=== PATIENT | male | born 1995 | race Two or more races ===

== ENCOUNTER 2023-06-10 11:31 | Emergency (ER) | payer OTHER, MEDICAID ==
[~2023-06-10] VITALS: Ht 180.3 cm; Wt 97.8 kg
[2023-06-10 11:40] VITALS: TEMP 98.2
[2023-06-10] MEDS ORDERED: SODIUM CHLORIDE 0.9% 1,000 ML IV ONE ×2 (12:15)
[2023-06-10 12:37] LABS: Basophils # (auto) 0 10 ^3/uL (0-0.2); Basophils % (auto) 0.1 % (0.0-2.0); Eosinophils # (auto) 0 10 ^3/uL (0-0.8); Eosinophils % (auto) 0.1 % (0.0-7.0); Hematocrit 46.8 % (41.0-53.0); Hemoglobin 15.9 g/dL (13.5-17.5); Lymphocytes # (auto) 1.6 10 ^3/uL (0.4-5.4); Mean Corpuscular Hemoglobin 28.7 pg (28.0-32.0); Mean Corpuscular Hgb Conc. 33.9 g/dL (32.0-36.0); Mean Corpuscular Volume 84.6 fL (80.0-100.0); Monocytes # (auto) 1.1 10 ^3/uL (0-1.3); Neutrophils # (auto) 10.8 10 ^3/uL (1.6-8.6); Neutrophils % (auto) 79.8 % (37.0-80.0); Red Blood Cells 5.54 10^6/uL (4.5-5.90); Red Cell Distribution Width 13.9 % (11.8-14.3); White Blood Cell 13.6 10^3/uL (4.4-10.8)
[2023-06-10 13:09] LABS: Potassium 3.7 mmol/L (3.5-5.1)
[2023-06-10] MEDS ORDERED: metroNIDAZOLE 500MG/100ML 100 ML IV ONE (13:15)
[2023-06-10] MEDS ORDERED: cefTRIAXone 1GM/50ML D5W 50 ML IV ONE (13:15)
[2023-06-10 13:16] LABS: BUN/Creatinine Ratio 11.8 (10.0-20.0); Bilirubin, Total 0.6 mg/dL (0.2-1.0); Total Protein 7.9 g/dL (6.4-8.2)
[2023-06-10 13:53] LABS: Urine Bacteria FEW /hpf (None Seen); Urine Blood TRACE /uL (Negative); Urine Hyaline Cast FEW /lpf (0 - 2); Urine Mucus FEW (None Seen); Urine Specific Gravity 1.033 (1.001-1.035); Urine WBC 1 /hpf (0 - 3)
[2023-06-10 14:20] VITALS: BP 122/64; PULSE 94; RESP 18; O2SAT 99
[2023-06-10] MEDS ORDERED: METR375C PO (14:20)
== END 2023-06-10 14:25 | disposition home or self-care (01) ==
LOC: EDSEX 11:31 → ER 11:31
DX: K57.92 Diverticulitis of intestine, part unspecified, without perforation or abscess without bleeding (principal); R10.32 Left lower quadrant pain; R10.2 Pelvic and perineal pain
CPT/HCPCS: 36415; 74176; 80053; 81001; 83605; 84702; 85025; 87040; 96361; 96365; 96368; 99285; J0696; J3490

== ENCOUNTER 2024-12-05 09:41 | Emergency (ER) | payer BC, MEDICAID, OTHER ==
[~2024-12-05] VITALS: Ht 180.3 cm; Wt 84.9 kg
[~2024-12-05 09:41] MED LIST: METR375C PO
[2024-12-05 10:17] VITALS: BP 127/80; PULSE 65; RESP 16; TEMP 98.3; O2SAT 97
--- NOTE | 2024-12-05 10:23 | ED.PDOC ---
Musculoskeletal HPI Comments A 29 YEAR OLD MALE PRESENTS TO THE ED WITH COMPLAINT OF SHOULDER PAIN STATUS POST FALL. PATIENT STATES HE WAS SNOWBOARDING YESTERDAY AND HE ACCIDENTALLY FELL AND LANDED ON HIS RIGHT SHOULDER. PATIENT REPORTS HE IS NOW EXPERIENCING RIGHT SHOULDER/CLAVICLE PAIN. PATIENT DENIES HEAD INJURY, NECK INJURY, LOC, FEVER, CHILLS, SHORTNESS OF BREATH, CHEST PAIN, ABDOMINAL PAIN, NAUSEA, VOMITING, HEADACHE, OR OTHER COMPLAINTS. NO OTHER SYMPTOMS OR MODIFYING FACTORS AT THIS TIME. PATIENT IS ALERT, ORIENTED X 4, AND HAS STEADY GAIT. Chief Complaint: Upper Extremity Time Seen by MD: 10:07 Reviewed Notes: Nurses Notes, Medications, Allergies Allergies: Coded Allergies: NO KNOWN ALLERGIES (Unverified , 12/05/24) Home Meds Active Scripts Metronidazole (Flagyl) 375 Mg Cap, 500 MG PO TID for 10 Days, #30 CAP Prov:FELICE CURTIS MD 06/10/23 Information Source: Patient Mode of Arrival: Ambulatory Location: Right Extremity Location: Clavicle, Shoulder Timing: Days Prehospital treatment: None Severity: Moderate Able to Move Extremity: Yes Bear Weight: Fully Pain: Moderate Mechanism: Blunt Trauma Circumstances: Fall Onset of Symptoms: After Trauma Symptoms: Pain DVT Risk Factors: NONE Last Tetanus: UTD Associated signs and symptoms: Shoulder pain Past Medical History PAST MEDICAL HISTORY: Denies Surgical History: Denies all surgeries Family History Family History: Reviewed,noncontributory to illness Social History Smoker: Non-Smoker Alcohol: Denies ETOH Use Drugs: Denies Drug Use Lives In: Home Constitutional: denies: chills, diaphoresis, fatigue, fever, malaise, sweats, weakness, others EENTM: denies: blurred vision, double vision, ear bleeding, ear discharge, ear drainage, ear pain, ear ringing, eye pain, eye redness, hearing loss, mouth pain, mouth swelling, nasal discharge, nose bleeding, nose congestion, nose pain, photophobia, tearing, throat pain, throat swelling, voice changes, others Respiratory: denies: cough, hemoptysis, orthopnea, SOB at rest, shortness of breath, SOB with excertion, stridor, wheezing, others Cardiovascular: denies: chest pain, dizzy spells, diaphoresis, Dyspnea on exertion, edema, irregular heart beat, left arm pain, lightheadedness, palpitations, PND, syncope, others Gastrointestinal: denies: abdomen distended, abdominal pain, blood streaked bowels, constipated, diarrhea, dysphagia, difficulty swallowing, hematemesis, melena, nausea, poor appetite, poor fluid intake, rectal bleeding, rectal pain, vomiting, others Genitourinary: denies: burning, dysuria, flank pain, frequency, hematuria, incontinence, penile discharge, penile sore, pain, testicle pain, testicle swelling, urgency, others Neurological: denies: dizziness, fainting, headache, left sided numbness, left sided weakness, numbness, paresthesia, pre-existing deficit, right sided numbness, right sided weakness, seizure, speech problems, tingling, tremors, weakness, others Musculoskeletal: reports: joint pain, joint swelling, others (RIGHT SHOULDER AND CLAVICLE PAIN); denies: back pain, gout, muscle pain, muscle stiffness, neck pain Integumetry: denies: bruises, change in color, change in hair/nails, dryness, laceration, lesions, lumps, rash, wounds, others Allergic/Immunocompromised: denies: Difficulty Healing, Frequent Infections, Hives, Itching, others Hematologic/Lymphatic: denies: anemia, blood clots, easy bleeding, easy bruising, swollen glands, others Endocrine: denies: excessive hunger, excessive sweating, excessive thirst, excessive urination, flushing, intolerance to cold, intolerance to heat, unexplained weight gain, unexplained weight loss, others Psychiatric: denies: anxiety, bipolar disorder, depression, hopeless, panic disorder, schizophrenia, sleepless, suicidal, others All Other Systems: Reviewed and Negative Physical Exam General Appearance: No Apparent Distress, Normal HEENT: Normal ENT Inspection, PERRL/EOMI, Pharynx Normal, TMs Normal Neck: Full Range of Motion, Non-Tender, Normal, Normal Inspection Respiratory: Chest Non-Tender, Lungs Clear, No Accessory Muscle Use, No Respiratory Distress, Normal Breath Sounds Cardiovascular: No Edema, No JVD, No Murmur, No Gallop, Normal Peripheral Pulses, Regular Rate/Rhythm Breast Exam: Deferred Gastrointestinal: No Organomegaly, Non Tender, No Pulsatile Mass, Normal Bowel Sounds, Soft Genitalia: Deferred Pelvic: Deferred Rectal: Deferred Extremities: Decreased range of motion, No calf tenderness, Normal capillary refill, No pedal edema, Swelling (BONY TENDERNESS AND SWELLING ON RIGHT MIDDLE CLAVICLE WITH DEFORMITY, NO OPEN WOUND SEEN. ), Tender (BONY TENDERNESS AND SWELLING ON RIGHT MIDDLE CLAVICLE, NO OPEN WOUND. 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 Was a procedure done?: No Differential Diagnosis EXT Differential Diagnosis: Fracture, Sprain, Dislocation, Contusion, Strain X-Ray, Labs, Meds, VS Vital Signs Date Time Temp Pulse Resp B/P (MAP) Pulse Ox O2 Delivery O2 Flow Rate FiO2 12/05/24 10:17 98.3 65 16 127/80 (96) 97 98.3 12/05/24 10:17 65 16 97 Room Air 12/05/24 10:05 98.3 65 16 127/80 (96) 97 PATIENT: EDWARDO DAVISONACCT: [id number]: [id number] : 1995 LOC: ER ROOM / BED: / AGE / SEX: 29 / M ADM STATUS: REG ER SERVICE 1012 ORDERING PHYSICIAN: GERMANIA REZA PROCEDURE(s): RCLAV - R CLAVICLE COMPLETE XRAY REASON: +DEFORITY R/O FX ORDER NUMBER(s): [id number], ACCESSION NUMBER(s): [id number] EXAM: XR Right Clavicle Complete, 2 or More Views CLINICAL INDICATION: +DEFORITY R/O FX TECHNIQUE: Frontal and lordotic views of the right clavicle. COMPARISON: None FINDINGS: BONES/JOINTS: Comminuted severely displaced fracture of the midclavicle. Soft tissue swelling. No dislocation. SOFT TISSUES: See above. OTHER FINDINGS: . IMPRESSION: Comminuted severely displaced fracture of the midclavicle. Soft tissue s welling. ATED BY: NORY JOSEPH MD DICTATED DATE/TIME: 12/05/24 1033 SIGNED BY: NORY JOSEPH MD SIGNED DATE/TIME: 12/05/24 1033 CC: X-Ray, Labs, Meds, VS Comment EXTERNAL MEDICAL RECORDS REVIEWED: [NONE] INDEPENDENT HISTORIANS: [NONE] SOCIAL DETERMINANTS OF HEALTH: [NONE] LABS ORDERED: CBC, BMP, PTT/PT/INR, TYPE/SCREEN REVIEWED AND INTERPRETED RESULTS: NORMAL IMAGING ORDERED: RIGHT CLAVICLE TREATMENTS ORDERED: RIGHT ARM SLING PROCEDURES PERFORMED: NONE CRITICAL CARE TIME: NONE I HAVE DISCUSSED THE PATIENT WITH THE ATTENDING PHYSICIAN DR. NJ AND HE AGREES WITH THE PATIENT'S PLAN OF CARE AND DISPOSITION. BASED ON HISTORY OF PRESENT ILLNESS, AND PHYSICAL EXAM, PATIENT WILL BE DISCHARGED HOME. DISCUSSED PLAN FOR DISCHARGE HOME WITH RX []. MEDICATION WARNINGS GIVEN. SHARED DECISION MAKING: PATIENT INSTRUCTED TO FOLLOW UP WITH PRIMARY CARE PROVIDER IN 1-2 DAYS FOR RE-EVALUATION OF SYMPTOMS. PATIENT VERBALIZES UNDERSTANDING TO RETURN TO ED FOR NEW OR WORSENING SYMPTOMS OR IF FOLLOW UP WITH PCP CANNOT BE OBTAINED. PATIENT FEELS COMFORTABLE GOING HOME AT THIS TIME. ALL QUESTIONS ADDRESSED AT TIME OF DISCHARGE. Images Reviewed?: Images reviewed and evaluated by me Time of 1ST Reevaluation: 10:52 Reevaluation 1ST: Improved Consultation: Other (ORTHOPEDIC: 1035: I HAVE DISCUSSED THE PATIENT'S CASE AND IMAGING RESULTS WITH DR. GILBERT AND HE HAS SAID THE PATIENT DOES NOT NEED TO BE ADMITTED AT THIS TIME, BUT TO HAVE BLOOD DRAWN ON THE PATIENT AND HE WILL DO THE PATIENT'S SURGERY TOMORROW.) Patient Education/Counseling: Diagnosis, Treatment, Need For Follow Up Family Education/Counseling: Diagnosis, Treatment, Need For Follow Up Medical Screening: No EMC Exist At This Time Departure 1 Departure Time of Disposition: 11:00 Impression: Primary Impression: Closed right clavicular fracture Qualified Codes: S42.021A - Displaced fracture of shaft of right clavicle, initial encounter for closed fracture Disposition: HOME / SELF CARE / HOMELESS Condition: Stable Additional Instructions: FOLLOW-UP WITH PCP IN 1 TO 2 DAYS REFERRAL TO [facility]. TAKE MEDICATIONS PRESCRIBED. RETURN TO ED FOR ANY NEW OR WORSENING SYMPTOMS. Discharged With: Self Critical Care Note Critical Care Time?: No Stability Stability form required: No I personally scribed for GERMANIA REZA ([email or web address]) on 12/05/24 at 10:23. Electronically submitted by Rafa Walton ([email or web address]). I personally scribed for GERMANIA REZA ([email or web address]) on 12/05/24 at 10:41. Electronically submitted by Rafa Walton ([email or web address]). GERMANIA REZA Dec 05, 2024 10:23
--- NOTE | 2024-12-05 10:36 | DVH ---
EXAM: XR Right Clavicle Complete, 2 or More Views CLINICAL INDICATION: +DEFORITY R/O FX TECHNIQUE: Frontal and lordotic views of the right clavicle. COMPARISON: None FINDINGS: BONES/JOINTS: Comminuted severely displaced fracture of the midclavicle. Soft tissue swelling. No dislocation. SOFT TISSUES: See above. OTHER FINDINGS: . IMPRESSION: Comminuted severely displaced fracture of the midclavicle. Soft tissue swelling.
[2024-12-05 11:25] LABS: Basophils # (auto) 0 10 ^3/uL (0-0.2); Basophils % (auto) 0.2 % (0.0-2.0); Eosinophils # (auto) 0.1 10 ^3/uL (0-0.8); Hematocrit 42.1 % (41.0-53.0); Hemoglobin 14.1 g/dL (13.5-17.5); Lymphocytes % (auto) 28.5 % (10.0-50.0); Mean Corpuscular Hgb Conc. 33.5 g/dL (32.0-36.0); Mean Corpuscular Volume 86.6 fL (80.0-100.0); Monocytes # (auto) 0.5 10 ^3/uL (0-1.3); Monocytes % (auto) 7.5 % (0.0-12.0); Neutrophils # (auto) 4.3 10 ^3/uL (1.6-8.6); Neutrophils % (auto) 62.8 % (37.0-80.0); Nucleated Red Blood Cells % 0.1 %; Platelet Count (auto) 174 10^3/uL (140-450); Red Blood Cells 4.87 10^6/uL (4.5-5.90); White Blood Cell 6.9 10^3/uL (4.4-10.8)
[2024-12-05 11:40] LABS: INR 0.99 (0.9-1.15); Prothrombin Time 10.5 sec (9.3-11.8)
[2024-12-05 12:26] LABS: Potassium 3.8 mmol/L (3.5-5.1); Sodium 138 mmol/L (136-145)
[2024-12-05 12:27] LABS: Anion Gap 4 (5-15); Calcium 9.2 mg/dL (8.7-10.4); Carbon Dioxide 25 mmol/L (20-31)
[2024-12-05 12:28] LABS: Chloride 109 mmol/L (98-107)
[2024-12-05 12:32] LABS: BUN/Creatinine Ratio 12.3 (10.0-20.0); Blood Urea Nitrogen 13 mg/dL (9-23); Glucose 95 mg/dL (74-106)
[2024-12-06] MEDS ORDERED: ACET300T51 PO (06:33)
== END 2024-12-05 10:50 | disposition home or self-care (01) ==
LOC: ER 09:41
DX: S42.011A Anterior displaced fracture of sternal end of right clavicle, initial encounter for closed fracture (principal); W18.39XA Other fall on same level, initial encounter; Y93.23 Activity, snow (alpine) (downhill) skiing, snowboarding, sledding, tobogganing and snow tubing; Y92.89 Other specified places as the place of occurrence of the external cause; Y99.8 Other external cause status
CPT/HCPCS: 36415; 73000; 80048; 85025; 85610; 86850; 86900; 86901

== ENCOUNTER 2024-12-06 06:15 | Inpatient (IN) | payer BC ==
[~2024-12-06] VITALS: Ht 180.3 cm; Wt 91.0 kg
[2024-12-06] MEDS ORDERED: ACET300T51 PO (06:33)
[2024-12-06] MEDS ORDERED: NITROGLYCERIN 0.4 MG SL TAB SL PRN (07:30)
[2024-12-06] MEDS ORDERED: MORPHINE SULFATE INJ 2 MG/ml SYRG IV PRN ×2 (07:30→12:00)
--- NOTE | 2024-12-06 07:56 | DVH ---
CHEST RADIOGRAPH Indication: Pre-op, pain Technique: Single frontal view of the chest was obtained COMPARISON: None FINDINGS: Lines and Tubes: None Lungs: Clear Pleura: No effusion. No pneumothorax. Cardiomediastinal contours: Unremarkable Bones: Unremarkable IMPRESSION: No acute disease.
[2024-12-06 08:00] VITALS: PULSE 58; RESP 20; O2SAT 99
[2024-12-06 09:00] VITALS: BP 125/79; PULSE 58; RESP 20; TEMP 98.2; O2SAT 99
[2024-12-06 09:11] VITALS: PULSE 85; RESP 18; O2SAT 98
--- NOTE | 2024-12-06 11:54 | DVHHP2 ---
History of Present Illness Reason for Visit: For surgery of his broken clavicle History of Present Illness This is a 29-year-old gentleman came to the hospital for elective broken clavicle surgery by orthopedic surgeon. Given he belongs to [facility] hospitalist on-call is asked to admit the patient and manage while he is in the hospital. Currently patient takes pain medications for his fracture. Otherwise denies taking any other medications. Review of Systems Review of Systems No fevers chills or sweats. No chest pain or shortness for breath. No headache dizziness. Other review of systems reviewed normal. Allergies: Coded Allergies: NO KNOWN ALLERGIES (Unverified , 12/05/24) Medications Current Medications Medications Dose Ordered Sig/Ana Route Start Time Stop Time Status Last Admin Dose Admin Nitroglycerin 0.4 mg Q5MINP PRN SL 12/06/24 07:30 Morphine Sulfate 2 mg Q30M PRN IV 12/06/24 07:30 Exam Vital Signs Vital Signs Date Time Temp Pulse Resp B/P (MAP) Pulse Ox O2 Delivery O2 Flow Rate FiO2 12/06/24 09:11 85 18 98 Room Air* 0 21 12/06/24 09:00 98.2 125/79 (94) 98.2 Exam Alert awake oriented to place and person comfortable without distress. HEENT neck supple no JVD pupils equal round react to light. Heart regular rate and rhythm normal heart sounds S1 plus S2. Lungs fair air movement chest tube will expansion. No rales or wheezing. Abdomen soft nontender positive bowel sounds. Extremities no edema positive pulses. Neurologically no focal deficits Assessment/Plan Assessment/Plan Clavicle fracture here for elective surgery Patient is healthy without any other acute medical issues. Proceed with the surgery as planned. We will use incentive spirometry postop. Follow up routine labs. Pain medications. Supportive care and treatment. Otherwise follow clinical management per clinical course and recommendations from the orthopedic surgeon. Discussed with the nurse regarding care plan. Plan discussed with: Other My Orders Orders - MAXIMILIANO LANGLEY MD Procedure Category Date Status Time Admit ADMIT 12/06/24 Transmitted 07:29 Oxygen By Nasal RT 12/06/24 Transmitted Cannula 07:29 Nitroglycerin PHA 12/06/24 In Process Sublingual (Ntrostat 07:30 Morphine Sulfate PHA 12/06/24 In Process Injection 07:30 Stat Ekg For Chest PHILL 12/06/24 In Process Pain 07:29 Notify Of Changes PHILL 12/06/24 In Process From Base 07:29 Chest Portable XY 12/06/24 Resulted 07:29 Electrocardigram EKG 12/06/24 Logged 07:29 Pharmacy PHILL 12/06/24 In Process Clarification: 07:38 MAXIMILIANO LANGLEY MD Dec 06, 2024 11:53
[2024-12-06] MEDS ORDERED: HYDROcodone-ACET 5/325MG TAB PO PRN (12:00)
[2024-12-06] MEDS ORDERED: ONDANSETRON HCL 4 MG/2 ML VIAL IV PRN (12:00)
[2024-12-06] MEDS ORDERED: LACTULOSE 20Gm/30ML SOLN PO PRN (12:00)
--- NOTE | 2024-12-06 12:58 | ECG ---
[facility] Test Date: 2024-12-06 Test Time: 07:46:26 Pat Name: EDWARDO DAVISON Department: Respiratoy Room: 0209 A Gender: M Media Relations Associate: PANFILO : 1995 Requested By: MAXIMILIANO LANGLEY Order Number: [id number] Reading MD: Artemio Gonsalez Measurements Intervals [place] Rate: 55 P: 25 WI: 169 QRS: 46 QRSD: 96 T: 29 QT: 399 QTc: 382 Interpretive Statements Sinus rhythm Anteroseptal infarct, age indeterminate Baseline wander in lead(s) V3 Electronically Signed On 12-07-2024 9:03:01 PST by Artemio Gonsalez Please click the below link to view image of tracing.
--- NOTE | 2024-12-06 13:03 | DVHINCON2 ---
Date of service: Dec 06, 2024 Reason for Consultation Right clavicle fracture History of Present Illness 29 yo M sp mechanical fall while snowboarding and landed onto right arm -- immediate pain/swelling/inability to bear weight. Patient was at [place]. RHD. Patient has tenting at right arm. Past Medical History denies Family History: FH: pancreatic disease G8 FATHER, (UNKNOWN) Hypertension G8 MOTHER (UNKNOWN) Allergies: Coded Allergies: NO KNOWN ALLERGIES (Unverified , 12/05/24) Home Meds Reported Medications Acetaminophen W/ Codeine (Acetaminophen/Codeine) 1 Tab Tab, 1 TAB PO Q6HR, #30 TAB 12/06/24 Current Medications Current Medications Medications (Trade) Dose Ordered Sig/Ana Route PRN Reason Start Time Stop Time Status Last Admin Nitroglycerin (Ntrostat Sublingual) 0.4 mg Q5MINP PRN SL FOR CHEST PAIN 12/06/24 07:30 Morphine Sulfate 2 mg Q30M PRN IV FOR CHEST PAIN 12/06/24 07:30 Morphine Sulfate 2 mg Q4HPRN PRN IV SEVERE PAIN (7-10 PAIN SCALE) 12/06/24 12:00 Acetaminophen/ Hydrocodone Bitart ([place] 5/325MG Tab) 1 tab Q4HPRN PRN PO MODERATE PAIN (4-6 PAIN SCALE) 12/06/24 12:00 Ondansetron HCl (Zofran) 4 mg Q4HPRN PRN IV NAUSEA / VOMITING 12/06/24 12:00 Famotidine (Pepcid Tablet) 20 mg DAILY PO 12/07/24 10:00 Lactulose 30 ml BIDPRN PRN PO FOR CONSTIPATION 12/06/24 12:00 Review of Systems neg except per HPI Vital Signs Vital Signs Date Time Temp Pulse Resp B/P (MAP) Pulse Ox O2 Delivery O2 Flow Rate FiO2 12/06/24 09:11 85 18 98 Room Air* 0 21 12/06/24 09:00 98.2 125/79 (94) 98.2 Physical Exam NAD RUE: +tenting at skin at clavicle +we/wf silt m/r/u RP 2+ Plan/Recommendation 29 yo M with right comminuted midshaft clavicle fracture 1. I had a long and thorough discussion held with the patient and family regarding his condition. Questions for patient answered. Risks benefits options and alternatives discussed in depth. Risks include but not exclusive to bleeding infection nerve injury hardware failure nonunion malunion chronic pain blood clots cardiac and pulmonary complications and . patient understands the risks and wishes to proceed with surgery 2. Plan for open reduction internal fixation of right clavicle fracture 3. NPO/IVF 4. pain control 5. plan for dc home on 12/06/24 6. pain medication sent to pharmacy Plan discussed with: Patient AYE GILBERT MD Dec 06, 2024 13:02
[2024-12-06] MEDS ORDERED: ceFAZolin 1GM VL ONE (14:27)
[2024-12-06] MEDS ORDERED: KETAMINE 50mg/ML 1ml syringe ONE (14:28)
[2024-12-06] MEDS ORDERED: CEFEPIME 1GM/ 50ML 50 ML IV ONE (14:48)
[2024-12-06] MEDS ORDERED: fentaNYL CITRATE 100 MCG/2 ML VL ONE (14:57)
[2024-12-06] MEDS: BUPIVACAINE 0.25% INJ 50ML VIAL ONE (15:08)
[2024-12-06] MEDS: LIDOCAINE 1% HCL (LOCAL ANESTH.) INJ 20ML MDV ONE (15:09)
[2024-12-06] MEDS ORDERED: MEPERIDINE HCL (25 MG/ML) 1ML VIAL ONE (15:36)
[2024-12-06 15:54] VITALS: PULSE 76; RESP 13; O2SAT 100
--- NOTE | 2024-12-06 16:08 | DVH ---
C-ARM FLUOROSCOPY: PROCEDURE: Open reduction internal fixation right clavicle fracture Technique: C-arm utilization forearm ORIF of a right clavicle fracture FLUOROSCOPY TIME: 1.4 seconds DAP: 0.08 mgy FINDINGS: Spot intraoperative C arm radiographs demonstrating ORIF of the right clavicle fracture. IMPRESSION: 1. Please refer to surgical report for detailed findings.
[2024-12-06 16:10] VITALS: PULSE 80; RESP 14; O2SAT 100
--- NOTE | 2024-12-06 16:10 | DVH ---
CLINICAL INDICATION: RIGHT CLAVICLE ORIF TECHNIQUE: 3 radiographic views of the open reduction internal fixation of the right clavicle fractur e were obtained. Comparison: XY R CLAVICLE COMPLETE XRAY on DOS: 12/05/24 FINDINGS/IMPRESSION: 1.4 seconds total fluoro time Cumulative dose 0.08 mGy
[2024-12-06] MEDS ORDERED: HYDROmorphone HCL 2 MG/ML VL/or syr IV PRN (16:15)
[2024-12-06] MEDS ORDERED: ONDANSETRON HCL 4 MG/2 ML VIAL IV ONE (16:15)
[2024-12-06 17:32] VITALS: BP 128/83; PULSE 72; RESP 16; TEMP 98; O2SAT 98
[2024-12-06] MEDS ORDERED: PROPOFOL 10 MG/ML 20 ML IV ONE (19:12)
--- NOTE | 2024-12-07 06:13 | DVHOP2 ---
Operative Report - 2 Report Details Date: 12/06/24 Preop Diagnosis: Right comminuted midshaft clavicle fracture Postop Diagnosis: as above Surgeon: Marshall Olivera MD House Mover Supervisor: Gokul BANERJEE Anesthesiologist: Dinesh MORALES Anesthesia: General Implant: Arthrex midshaft plate; 6 screws Consent: The patient was informed of the risks and benefits of the procedure. These include but are not limited to complications of anesthesia, postoperative infection, incomplete relief of symptoms, recurrence of symptoms, damage to blood vessels, nerves and tendons, deep venous thrombosis, pulmonary embolism and possible need for repeat surgery in the future. Estimated Blood Loss: 10 cc Name of Procedure Performed open reduction internal fixation of right clavicle fracture; intraop fluoro Procedure Details Procedure Details: The fracture was significantly displaced and shortened and it was thought that nonoperative treatment would likely lead to nonunion/ pain/ skin issues. Therefore, informed consent was obtained for operative fixation of his clavicle fracture. The patient was informed of the risks and benefits of the procedure. These include but are not limited to complications of anesthesia, postoperative infection, incomplete relief of symptoms, recurrence of symptoms, damage to blood vessels, nerves and tendons, deep venous thrombosis, pulmonary embolism and possible need for repeat surgery in the future. DESCRIPTION OF OPERATION: The patient was brought to the OR and laid supine on the OR table. After general anesthesia was induced, the patient was positioned in the beach-chair position on the headrest. Patient left clavicle was positioned and fluoroscopy imaging was used to assess fracture and to make sure we get adequate images. Next, the left upper extremity was prepped and draped in the usual sterile fashion, including the clavicle. Next, a standard incision was made directly overlying the clavicle, and the dissection was carried down to the deep layer exposing the clavicle fracture. Large butterly fragment was comletely displaced that was tenting the skin and through the subfascia. The fascia was cleaned of hematoma and fibrin clot. The fracture was then reduced and held provisionally with a reduction clamp. Butterfly fragment was long but thin and held in placed. Patient was noted to have comminution at fracture site. a 6 hole Left superior midshaft plate was selected. Fracture was reduced and brought out to length. Fluoro confirmed reduction. The plate was fashioned over the clavicle and temporaily held with reduction clamp. Fluoro was used to assess plate and reduction which were adequate. Next, three screws were placed in the medial fragment and three screws in the lateral fragment in a standard AO fashion. All screws were then tightened. cortical screws and locking screws were used for fixation. DBM placed at comminution site Fluoro images were obtained in the operating room showing good reduction of the fracture as well as placement of all screws and hardware. Next, the wound was copiously irrigated. 30 cc of marcaine 0.25 percent were used locally. Incision was closed in layers of 0-vicryl, 2-0 vicryl and monocryl. followed by dressings over the skin. The patient was placed into a sling postoperatively. The patient was then awakened from anesthesia, transferred back onto the stretcher, and taken to the PACU for recovery. There were no complications. Patient was seen in recovery and is neurovascularly intact. Condition Good Disposition Still a Patient MARSHALL OLIVERA MD Dec 07, 2024 06:13
[2024-12-07] MEDS ORDERED: FAMOTIDINE 20 MG TAB PO SCH (10:00)
--- NOTE | 2024-12-16 14:15 | DVHDS2 ---
Discharge Summary Date of Admission Dec 06, 2024 at 06:15 Date of Discharge: Dec 06, 2024 Brief Hx & Hospital Course: This is a 29-year-old gentleman came to the hospital for elective broken clavicle surgery by orthopedic surgeon. Given he belongs to [facility] hospitalist on-call is asked to admit the patient and manage while he is in the hospital. Currently patient takes pain medications for his fracture. Otherwise denies taking any other medications. Underwent successful clavicle surgery. Patient did well. No postop issues. St able. Therefore he was discharged by orthopedic surgeon. Patient is advised to follow up with the orthopedic surgeon in couple of weeks. Operations or Procedures Operative Report - 2 Report Details Date: 12/06/24 Preop Diagnosis: Right comminuted midshaft clavicle fracture Postop Diagnosis: as above Surgeon: Marshall Olivera MD Rn Labor And Delivery: Gokul BANERJEE Anesthesiologist: Dinesh MORALES Anesthesia: General Implant: Arthrex midshaft plate; 6 screws Consent: The patient was informed of the risks and benefits of the procedure. These include but are not limited to complications of anesthesia, postoperative infection, incomplete relief of symptoms, recurrence of symptoms, damage to blood vessels, nerves and tendons, deep venous thrombosis, pulmonary embolism and possible need for repeat surgery in the future. Estimated Blood Loss: 10 cc Name of Procedure Performed open reduction internal fixation of right clavicle fracture; intraop fluoro Procedure Details Procedure Details: The fracture was significantly displaced and shortened and it was thought that nonoperative treatment would likely lead to nonunion/ pain/ skin issues. Therefore, informed consent was obtained for operative fixation of his clavicle fracture. The patient was informed of the risks and benefits of the procedure. These include but are not limited to complications of anesthesia, postoperative infection, incomplete relief of symptoms, recurrence of symptoms, damage to blood vessels, nerves and tendons, deep venous thrombosis, pulmonary embolism and possible need for repeat surgery in the future. DESCRIPTION OF OPERATION: The patient was brought to the OR and laid supine on the OR table. After general anesthesia was induced, the patient was positioned in the beach-chair position on the headrest. Patient left clavicle was positioned and fluoroscopy imaging was used to assess fracture and to make sure we get adequate images. Next, the left upper extremity was prepped and draped in the usual sterile fashion, including the clavicle. Next, a standard incision was made directly overlying the clavicle, and the dissection was carried down to the deep layer exposing the clavicle fracture. Large butterly fragment was comletely displaced that was tenting the skin and through the subfascia. The fascia was cleaned of hematoma and fibrin clot. The fracture was then reduced and held provisionally with a reduction clamp. Butterfly fragment was long but thin and held in placed. Patient was noted to have comminution at fracture site. a 6 hole Left superior midshaft plate was selected. Fracture was reduced and brought out to length. Fluoro confirmed reduction. The plate was fashioned over the clavicle and temporaily held with reduction clamp. Fluoro was used to assess plate and reduction which were adequate. Next, three screws were placed in the medial fragment and three screws in the lateral fragment in a standard AO fashion. All screws were then tightened. cortical screws and locking screws were used for fixation. DBM placed at comminution site Fluoro images were obtained in the operating room showing good reduction of the fracture as well as placement of all screws and hardware. Next, the wound was copiously irrigated. 30 cc of marcaine 0.25 percent were used locally. Incision was closed in layers of 0-vicryl, 2-0 vicryl and monocryl. followed by dressings over the skin. The patient was placed into a sling postoperatively. The patient was then awakened from anesthesia, transferred back onto the stretcher, and taken to the PACU for recovery. There were no complications. Patient was seen in recovery and is neurovascularly intact. Condition Good Condition at Discharge: Good Final Diagnosis/Problems List Right clavicle fracture status post surgery Discharge Disposition: Still a Patient Discharge Instruct/Medications Diet: Regular Activity: See Comment Activity comment: THERON QUINTANA; nhi to use sling Follow Up/Referral: Dr. Olivera in 2 weeks Medications: oxycodone/ doxycycline Discharge Statement: "Patient was advised to return to the ER or call 911 if any headaches, dizziness, shortness of breath, chest pain, abdominal pain, bleeding, fevers, or worsening of medical condition. Patient was counseled about treatment plan, medications, possible side effects, patientverbalized understanding. All questions were answered to the best of my ability. This discharge took greater then 30 minutes in planning, reviewing documentation, counseling the patient, and discussing with other team members." ASSESSMENT ASSESSMENT Assessment as above MAXIMILIANO LANGLEY MD Dec 16, 2024 14:15
== END 2024-12-06 19:13 | disposition home or self-care (01) | DRG 517 ==
LOC: CENTRAL 06:15 → EEVIPCON 06:15
PROVIDERS: ADMIT Hospitalist; ATTEND Hospitalist
PROC: 0PS904Z Reposition Right Clavicle with Internal Fixation Device, Open Approach (ICD-10-PCS; principal; 2024-12-06 14:25)
DX: S42.021A Displaced fracture of shaft of right clavicle, initial encounter for closed fracture (principal); Z82.49 Family history of ischemic heart disease and other diseases of the circulatory system; V00.311A Fall from snowboard, initial encounter; Y92.89 Other specified places as the place of occurrence of the external cause; Y99.8 Other external cause status; Y93.23 Activity, snow (alpine) (downhill) skiing, snowboarding, sledding, tobogganing and snow tubing
CPT/HCPCS: 71045; 73000; 76000; 86850; 86900; 86901; 93005; G0378; J0690; J1100; J1885; J2003; J2250; J2405; J2704; J3490